=== PATIENT | female | born 1995 | race Caucasian/White ===

== ENCOUNTER 2021-06-05 14:05 | Emergency (ER) | payer MEDICAID ==
[~2021-06-05] VITALS: Ht 162.6 cm; Wt 118.2 kg
[~2021-06-05 14:05] MED LIST: NO HOME MEDS
[2021-06-05 14:14] VITALS: BP 151/82
== END 2021-06-05 15:43 | disposition left against medical advice (07) ==
LOC: ER 14:06
DX: O46.91 Antepartum hemorrhage, unspecified, first trimester (principal); Z3A.01 Less than 8 weeks gestation of pregnancy; Z53.21 Procedure and treatment not carried out due to patient leaving prior to being seen by health care provider

== ENCOUNTER 2021-07-02 09:32 | Emergency (ER) | payer MEDICAID ==
[~2021-07-02] VITALS: Ht 162.6 cm; Wt 122.0 kg
[2021-07-02 10:21] VITALS: BP 145/82
== END 2021-07-02 11:08 | disposition home or self-care (01) ==
LOC: ER 09:32
DX: O99.511 Diseases of the respiratory system complicating pregnancy, first trimester (principal); J06.9 Acute upper respiratory infection, unspecified; R07.89 Other chest pain; R59.0 Localized enlarged lymph nodes; J45.909 Unspecified asthma, uncomplicated; O21.9 Vomiting of pregnancy, unspecified; O16.1 Unspecified maternal hypertension, first trimester; Z3A.10 10 weeks gestation of pregnancy; Z88.8 Allergy status to other drugs, medicaments and biological substances
CPT/HCPCS: 99282

== ENCOUNTER 2021-07-27 19:46 | Emergency (ER) | payer MEDICAID ==
[~2021-07-27] VITALS: Ht 152.4 cm; Wt 129.2 kg
[2021-07-27] MEDS ORDERED: acetaminophen 325mg tablet PO ONE (22:50)
[2021-07-28 02:28] VITALS: BP 134/84
== END 2021-07-28 02:29 | disposition home or self-care (01) ==
LOC: ER 19:47
DX: J20.9 Acute bronchitis, unspecified (principal); J45.909 Unspecified asthma, uncomplicated; N39.0 Urinary tract infection, site not specified; Z88.5 Allergy status to narcotic agent; Z88.6 Allergy status to analgesic agent
CPT/HCPCS: 87081; 87502; 87503; 87880; 99283